=== PATIENT | female | born 1970 | race Asian ===

== ENCOUNTER 2018-10-22 06:22 | Emergency (ER) | payer OTHER ==
[~2018-10-22] VITALS: Ht 160 cm; Wt 74.8 kg
[2018-10-22 06:39] VITALS: BP 131/77
--- NOTE | 2018-10-22 06:39 | NUR ---
ED Nurse Note: Pt arrived ED from home, c/o right eye possible foriegn Body for 2 days.
[2018-10-22] MEDS ORDERED: Proparacaine 0.5% Opth Soln 15ml RIGHT EYE ONE (06:45)
[2018-10-22] MEDS ORDERED: Fluorescein Strips ONE (06:58)
[2018-10-22] MEDS ORDERED: Fluorescein Strips RIGHT EYE ONE (07:00)
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
[2018-10-22] MEDS ORDERED: Erythromycin Opth Ointment 3.5gm RIGHT EYE ONE (07:15)
[2018-10-22 07:24] VITALS: BP 131/77
--- NOTE | 2018-10-22 07:31 | NUR ---
ER DISCHARGE NOTE: Patient is cleared to be discharged per Dr. Alexandre, examed rig eye, applied meds to rigth eye and pad. pt is aox4, on room air, with stable vital signs. pt was given dc and prescription instructions, pt was able to verbalize understanding, pt id band removed . pt is able to ambulate with steady gait. pt took all belongings.
== END 2018-10-22 07:24 | disposition home or self-care (01) ==
LOC: EMR 06:55
DX: S05.01XA Injury of conjunctiva and corneal abrasion without foreign body, right eye, initial encounter (principal); X58.XXXA Exposure to other specified factors, initial encounter; Y92.89 Other specified places as the place of occurrence of the external cause; Z88.6 Allergy status to analgesic agent
CPT/HCPCS: 99282

== ENCOUNTER 2019-03-22 09:57 | Emergency (ER) | payer OTHER ==
[~2019-03-22] VITALS: Ht 160 cm; Wt 72.6 kg
[2019-03-22] MEDS ORDERED: NKM (10:07)
--- NOTE | 2019-03-22 10:29 | Emergency Room Report ---
History of Present Illness General Chief Complaint: Sore Throat Source: Patient Present Illness HPI 48-year-old female presents with sore throat for the past 3 to 4 days, denies fever, does report chronic cough and no changes in her cough, or sputum production, and denies any hemoptysis. She denies any shortness of breath chest pain, and has not tried much in the way of medications for her symptoms, does report mild odynophagia. Allergies: Coded Allergies: IBUPROFEN (Unverified Adverse Reaction, Mild, nausea, 10/22/18) Patient History Past Medical History: see triage record Social History: Reports: smoking Last Menstrual Period: 03/21/19 Reviewed Nursing Documentation: PMH: Agreed; PSxH: Agreed Nursing Documentation-PMH Past Medical History: No Stated History Review of Systems All Other Systems: negative except mentioned in HPI Physical Exam Vital Signs Date Time Temp Pulse Resp B/P (MAP) Pulse Ox O2 Delivery O2 Flow Rate FiO2 03/22/19 10:05 98.1 70 18 119/79 (92) 98 Room Air Sp02 EP Interpretation: reviewed, normal General Appearance: no apparent distress, alert, non-toxic Head: normocephalic Eyes: bilateral eye normal inspection, bilateral eye PERRL, bilateral eye EOMI ENT: normal ENT inspection, hearing grossly normal, normal pharynx, no angioedema, normal voice, TMs + canals normal, moist mucus membranes Neck: normal inspection, full range of motion, supple, supple/symm/no masses Respiratory: chest non-tender, lungs clear, normal breath sounds, no rhonchi, no respiratory distress, no wheezing, chest symmetrical, palpation of chest normal Cardiovascular #1: normal peripheral pulses, regular rate, rhythm, no edema Cardiovascular #2: 2+ radial (R), 2+ radial (L) Gastrointestinal: normal inspection, non tender, soft, no mass, no guarding, no rebound Rectal: deferred Genitourinary: normal inspection, no CVA tenderness Musculoskeletal: back normal, gait/station normal, normal range of motion, non- tender, no calf tenderness Neurologic: alert, responsive, manager green III-XII nml as tested, motor strength/tone normal, sensory intact, speech normal Psychiatric: judgement/insight normal, memory normal, mood/affect normal Skin: warm/dry Lymphatic: no adenopathy Medical Decision Making Diagnostic Impression: Primary Impression: Sore throat ER Course Patient with normal throat exam, recommend [id number] meds, intranasal steroids, smoking cessation instructions given. Last Vital Signs Date Time Temp Pulse Resp B/P (MAP) Pulse Ox O2 Delivery O2 Flow Rate FiO2 03/22/19 10:05 98.1 70 18 119/79 (92) 98 Room Air Disposition: HOME, SELF-CARE Condition: Stable Referrals: [facility],REFERRING (PCP) LIZBETH PADILLA M.D Mar 22, 2019 10:29
[2019-03-22] MEDS ORDERED: FLONASE ALLERG9.9 ML NS (10:30)
[2019-03-22 10:37] VITALS: BP 119/79
--- NOTE | 2019-03-22 10:39 | NUR ---
ED Nurse Note: pt c/o sore throat and coarse cough. able to speak full sentences a/ox4
--- NOTE | 2019-03-22 10:43 | NUR ---
ER DISCHARGE NOTE: Patient is cleared to be discharged per ERMD, pt is aox4, on room air, with stable vital signs. pt was given dc and prescription instructions, pt was able to verbalize understanding, pt id band removed. pt is able to ambulate with steady gait. pt took all belongings.
== END 2019-03-22 10:44 | disposition home or self-care (01) ==
LOC: EMR 10:07
DX: J02.9 Acute pharyngitis, unspecified (principal); Z88.6 Allergy status to analgesic agent; F17.200 Nicotine dependence, unspecified, uncomplicated
CPT/HCPCS: 99281

== ENCOUNTER 2019-08-29 11:39 | Emergency (ER) | payer OTHER ==
[~2019-08-29] VITALS: Ht 160 cm; Wt 81.6 kg
[~2019-08-29 11:39] MED LIST: FLONASE ALLERG9.9 ML NS; NKM
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
[2019-08-29 11:56] VITALS: BP 126/96
--- NOTE | 2019-08-29 11:56 | NUR ---
ED Nurse Note: urine sent to lab.
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
--- NOTE | 2019-08-29 12:02 | NUR ---
ED Nurse Note: ERMD at bedside.
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
--- NOTE | 2019-08-29 12:30 | NUR ---
ED Nurse Note: patient taken to CT
--- NOTE | 2019-08-29 12:40 | NUR ---
ED Nurse Note: patient came back from CT scan, sister at bedside.
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
[2019-08-29 13:30] VITALS: BP 127/92
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
[2019-08-29 13:43] VITALS: BP 127/92
--- NOTE | 2019-08-29 13:43 | NUR ---
ER DISCHARGE NOTE: Patient is cleared to be discharged per ERMD DR BANGURA, pt is aox4, on room air, with stable vital signs. pt was given dc and prescription instructions, pt was able to verbalize understanding, pt id band removed without complications. pt is able to ambulate with steady gait. pt took all belongings.
== END 2019-08-29 13:42 | disposition home or self-care (01) ==
LOC: EMR 12:15
DX: S01.512A Laceration without foreign body of oral cavity, initial encounter (principal); S09.90XA Unspecified injury of head, initial encounter; Y04.2XXA Assault by strike against or bumped into by another person, initial encounter; Y92.9 Unspecified place or not applicable; Z88.6 Allergy status to analgesic agent
CPT/HCPCS: 70450; 70486; 81025; Z7502; 99284